=== PATIENT | female | born 1945 | race Caucasian/White ===

== ENCOUNTER 2022-03-02 10:08 | Outpatient (NON) | payer OTHER, SELFPAY ==
[2022-03-02 18:59] LABS: IFOB Positive Control Positive; Immunochemical Fecal Occult Bl Negative (N)
== END 2022-03-02 10:09 | disposition home or self-care (01) ==
LOC: ANHGOSHLAB 10:11
PROVIDERS: PCP Family Medicine; Visit Provider Family Medicine
DX: Z12.11 Encounter for screening for malignant neoplasm of colon (principal)
CPT/HCPCS: 82274

== ENCOUNTER 2023-03-02 08:03 | Outpatient (CLI) | payer OTHER, SELFPAY ==
[2023-03-02 17:12] LABS: Alanine Aminotransferase 17 U/L (6-35); Albumin Level 3.9 g/dL (3.5-5.1); Alkaline Phosphatase 62 U/L (38-126); Anion Gap 2 mmol/L (8-16); Aspartate Amino Transferase 28 U/L (14-36); Bilirubin,Total 0.8 mg/dL (0.2-1.3); Blood Urea Nitrogen 17 mg/dL (7-17); Calcium 8.9 mg/dL (8.4-10.2); Carbon Dioxide 29 mmol/L (22-30); Chloride 107 mmol/L (98-107); Cholesterol 191 mg/dL (0-200); Estimated Glomerular Filt Rate > 60; Glucose 89 mg/dL (65-110); HDL Direct 60 mg/dL; Potassium 4.3 mmol/L (3.4-5.0); Sodium 138 mmol/L (137-145); Triglycerides 56 mg/dL (<150)
[2023-03-02 17:22] LABS: Basophils Absolute Auto 0.1 K/mm3 (0.0-0.1); Basophils Percent Auto 1.1 % (0.2-1.2); Eosinophils Absolute Auto 0.1 K/mm3 (0-0.3); Eosinophils Percent Auto 1.1 % (0-4.4); Hemoglobin 12.6 g/dL (12.0-15.0); Immature Granulocyte Absolute 0.01 K/mm3 (0.00-0.031); Immature Granulocyte Percent A 0.2 % (0-0.5); Lymphocytes Absolute Auto 1.64 K/mm3 (0.9-3.2); Lymphocytes Percent Auto 26.7 % (18.3-44.2); Mean Corpuscular HGB Conc 31.5 g/dl (32-36); Mean Corpuscular Hemoglobin 26.6 pg (26-34); Mean Corpuscular Volume 84.6 fl (80-100); Mean Platelet Volume 12.2 fl (7.4-10.4); Monocytes Absolute Auto 0.6 K/mm3 (0.1-0.6); Monocytes Percent Auto 9.3 % (2.6-8.5); Neutrophils Absolute Auto 3.8 K/mm3 (1.3-6.7); Neutrophils Percent Auto 61.6 % (45.5-73.1); Platelet Count Result 229 k/mm3 (150-375); Red Blood Count 4.73 M/mm3 (4.2-5.4); Red Cell Distribution Width 15.4 % (11.5-14.5); White Blood Count 6.1 K/mm3 (4.5-10.0)
[2023-03-02 17:23] LABS: LDL Cholesterol Direct 100 mg/dL
[2023-03-02 17:35] LABS: Vitamin D 25 Hydroxy 37.7 ng/mL
[2023-03-02 18:10] LABS: Hepatitis C Virus Antibody Negative (Negative)
== END 2023-03-02 08:04 | disposition home or self-care (01) ==
LOC: ANHGOSHLAB 08:06
PROVIDERS: PCP Family Medicine; Visit Provider Family Medicine
DX: Z00.00 Encounter for general adult medical examination without abnormal findings (principal); Z11.59 Encounter for screening for other viral diseases; Z78.0 Asymptomatic menopausal state; M85.80 Other specified disorders of bone density and structure, unspecified site
CPT/HCPCS: 36415; 80053; 80061; 82306; 85025; 86803

== ENCOUNTER 2024-05-06 08:37 | Outpatient (CLI) | payer OTHER, SELFPAY ==
[2024-05-06 14:17] LABS: Basophils Absolute Auto 0.1 K/mm3 (0.0-0.1); Basophils Percent Auto 1.3 % (0.2-1.2); Eosinophils Absolute Auto 0.1 K/mm3 (0-0.3); Eosinophils Percent Auto 1.9 % (0-4.4); Hematocrit 41.5 % (37.0-47.0); Hemoglobin 13.3 g/dL (12.0-15.0); Immature Granulocyte Absolute 0.01 K/mm3 (0.00-0.031); Immature Granulocyte Percent A 0.2 % (0-0.5); Lymphocytes Absolute Auto 1.89 K/mm3 (0.9-3.2); Lymphocytes Percent Auto 35.5 % (18.3-44.2); Mean Corpuscular Volume 84.2 fl (80-100); Mean Platelet Volume 11.9 fl (7.4-10.4); Monocytes Absolute Auto 0.5 K/mm3 (0.1-0.6); Monocytes Percent Auto 9.2 % (2.6-8.5); Neutrophils Absolute Auto 2.8 K/mm3 (1.3-6.7); Neutrophils Percent Auto 51.9 % (45.5-73.1); Platelet Count Result 255 k/mm3 (150-375); Red Blood Count 4.93 M/mm3 (4.2-5.4); Red Cell Distribution Width 15.9 % (11.5-14.5); White Blood Count 5.3 K/mm3 (4.5-10.0)
[2024-05-06 14:59] LABS: Vitamin D 25 Hydroxy 35.2 ng/mL
[2024-05-06 15:21] LABS: Alanine Aminotransferase 14 U/L (6-35); Albumin Level 4.1 g/dL (3.5-5.1); Alkaline Phosphatase 67 U/L (38-126); Anion Gap 7 mmol/L (4-12); Aspartate Amino Transferase 56 U/L (14-36); Bilirubin,Total 0.6 mg/dL (0.2-1.3); Blood Urea Nitrogen 19 mg/dL (7-17); Calcium 9.3 mg/dL (8.4-10.2); Carbon Dioxide 30 mmol/L (22-30); Chloride 105 mmol/L (98-107); Estimated Glomerular Filt Rate > 60; Glucose 80 mg/dL (65-110); Potassium 4.5 mmol/L (3.4-5.0); Sodium 142 mmol/L (137-145)
== END 2024-05-06 08:38 | disposition home or self-care (01) ==
PROVIDERS: PCP Family Medicine; Visit Provider Student in an Organized Health Care Education/Training Program
DX: M85.80 Other specified disorders of bone density and structure, unspecified site (principal); Z85.3 Personal history of malignant neoplasm of breast; E55.9 Vitamin D deficiency, unspecified; Z13.220 Encounter for screening for lipoid disorders
CPT/HCPCS: 36415; 80053; 82306; 85025

== ENCOUNTER 2024-06-27 10:16 | Outpatient (CLI) | payer OTHER, SELFPAY ==
[2024-06-27 13:17] LABS: Alanine Aminotransferase 14 U/L (6-35); Albumin Level 4.2 g/dL (3.5-5.1); Alkaline Phosphatase 73 U/L (38-126); Anion Gap 5 mmol/L (4-12); Aspartate Amino Transferase 46 U/L (14-36); Blood Urea Nitrogen 16 mg/dL (7-17); Calcium 9.1 mg/dL (8.4-10.2); Carbon Dioxide 29 mmol/L (22-30); Chloride 106 mmol/L (98-107); Estimated Glomerular Filt Rate > 60; Glucose 84 mg/dL (65-110); Potassium 4.1 mmol/L (3.4-5.0); Sodium 140 mmol/L (137-145)
== END 2024-06-27 10:17 | disposition home or self-care (01) ==
LOC: ANHGOSHLAB 10:17
PROVIDERS: PCP Family Medicine; Visit Provider Family Medicine
DX: R79.89 Other specified abnormal findings of blood chemistry (principal)
CPT/HCPCS: 36415; 80053

== ENCOUNTER 2025-01-20 08:28 | Outpatient (CLI) | payer OTHER, SELFPAY ==
--- OUTSIDE RECORDS SUMMARY | 2025-01-20 08:35 | XMS_ITS | Referral Summary ---
Author Organization [facility] Address [address] [place] [address] Care Team Providers Care Hatch Supervisor Name Role Phone Alondra Abdul MD Primary Care Provider + Allergies No known active allergies Medications estradiol (ESTRACE) 0.01 % (0.1 mg/gram) vaginal cream mehnaz (1G) by Topical route 2 times every week 0 0 5 Active zolpidem (AMBIEN) 5 mg tablet take 2 tablet by oral route every day at bedtime 0 2 Active multivitamin-mi f-ykaq-YJ-vit K (MULTI FOR HER) 18 mg iron-600 mcg-40 mcg capsule 0 2 Active Additional Information Patient not taking.Reported on 01/02/2019 calcium (CALCIO HAMLET) 500 mg tablet 500 mg. 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 Malignant neoplasm of breast 06/14/2012 Overview (10/13/2016): Breast cancer Dermatochalasis 01/16/2012 Social History Tobacco Use Types Packs/Day Years Used Date Smoking Tobacco: Former Smokeless Tobacco: Never Comments Unknown Sex and Gender Information Value Date Recorded Sex Assigned at Not on file Legal Sex Female 6:43 PM 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 Gender Identity Not on file Sexual Orientation Not on file Last Filed Vital Signs Vital Sign Reading Time Taken Comments Blood Pressure 114/60 07/15/2014 12:49 PM 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 Pulse - - Temperature - - Respiratory Rate - - Oxygen Saturation - - Inhaled Oxygen Concentration - - Weight 58.5 kg (129 lb) 07/15/2014 12:49 PM 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 Height 162.6 cm (5' 4) 07/15/2014 12:49 PM 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 Body Mass Index 22.14 07/15/2014 12:49 PM 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 Plan of Treatment Not on file Insurance [employer] [facility] Care Teams Hatch Supervisor Relationship Specialty Start Date End Date Alondra Abdul MD PCP - General 09/25/17
--- OUTSIDE RECORDS SUMMARY | 2025-01-20 08:35 | XMS_ITS | Clinical Summary ---
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 Gender Identity Not on file Sexual Orientation Not on file Plan of Treatment Health Maintenance Due Date Last Done Comments DEXA Bone Density 1945 Hepatitis C Virus (HCV) Screening 1945 TdaP Immunization 1945 Pneumococcal Immunization (50+ years) (1 of 1 - PCV) 1996 Zoster Immunization (3 of 3) 04/24/2018 02/27/2018, 11/28/2017 Respiratory Syncytial Virus (RSV) Immunization (Adult) (1 - 1-dose 75+ series) 2021 Influenza Immunization (#1) 2024 09/0 11/2019, 05/02/2019, 04/13/2017, Additional history exists SARS-COV-2 Immunization ( season) 2024 08/12/2020 Hepatitis B Immunization Aged Out No longer eligible based on patient's age to complete this topic Meningococcal Immunization (ACWY) Aged Out No longer eligible based on patient's age to complete this topic Rotavirus Immunization Aged Out No lo nger eligible based on patient's age to complete this topic
--- OUTSIDE RECORDS SUMMARY | 2025-01-20 08:35 | XMS_ITS | Clinical Summary ---
Author Organization [facility] Address [address] [place] [address] Care Team Providers Care Crane Ladle Person Name Role Phone Alondra Abdul MD Primary Care Provider + Allergies No known active allergies Medications estradiol (ESTRACE) 0.01 % (0.1 mg/gram) vaginal cream mehnaz (1G) by Topical route 2 times every week 0 0 5 Active zolpidem (AMBIEN) 5 mg tablet take 2 tablet by oral route every day at bedtime 0 2 Active multivitamin-mi q-ldxu-JH-vit K (MULTI FOR HER) 18 mg iron-600 mcg-40 mcg capsule 0 2 Active Additional Information Patient not taking.Reported on 01/02/2019 calcium (CALCIO HAMLET) 500 mg tablet 500 mg. 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 Malignant neoplasm of breast 06/14/2012 Overview (10/13/2016): Breast cancer Dermatochalasis 01/16/2012 Surgical History Surgery Date Site/Laterality Comments EYE SURGERY Medical History Medical History Date Comments Macular degeneration Family History Medical History Relation Name Comments Breast cancer Maternal Grandmother Cancer , breast; Heart disease Other Family history of Heart disease; Relation Name Status Comments Maternal Grandmother Other Social History Tobacco Use Types Packs/Day Years Used Date Smoking Tobacco: Former Smokeless Tobacco: Never Comments Unknown Sex and Gender Information Value Date Recorded Sex Assigned at Not on file Legal Sex Female 6:43 PM RESEARCH ANTHROPOLOGIST Gender Identity Not on file Sexual Orientation Not on file Obstetrics History Last Filed Vital Signs Vital Sign Reading Time Taken Comments Blood Pressure 114/60 07/15/2014 12:49 PM RESEARCH ANTHROPOLOGIST Pulse - - Temperature - - Respiratory Rate - - Oxygen Saturation - - Inhaled Oxygen Concentration - - Weight 58.5 kg (129 lb) 07/15/2014 12:49 PM RESEARCH ANTHROPOLOGIST Height 162.6 cm (5' 4) 07/15/2014 12:49 PM RESEARCH ANTHROPOLOGIST Body Mass Index 22.14 07/15/2014 12:49 PM RESEARCH ANTHROPOLOGIST Plan of Treatment Not on file Insurance Care Teams Crane Ladle Person Relationship Specialty Start Date End Date Alondra Abdul MD PCP - General 09/25/17
--- OUTSIDE RECORDS SUMMARY | 2025-01-20 08:35 | XMS_ITS | Clinical Summary ---
Author Organization [facility] Address [address] [place] [address] Phone Care Team Providers Care Booster Assembler Name Role Phone Agusto Abdul MD Primary Care Provider +1- [phone] Allergies Active Allergy Reactions Criticality Noted Date Comments Cold Tablet Anxiety,Other (See Comments) Low 07/28/2015 Inability to sleep Medications CALCIUM PO Take by mouth. Active EUCRISA 2 % Ointment 12/20/2018 Active vit A/C/E ac/ZnOx/cupric oxide (EYE VITAMIN AND MINERALS ORAL) Take by mouth. Active VITAMIN E ORAL Take by mouth. Active Active Problems Patient Care Coordination No te Formatting of this note migh t be different from the original. 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 Malignant neoplasm of female breast Overview (11/02/2009): 1997,R breast,T1cN0,ER-,AR-,CMF x 6 Lumpectomy,LN,RT Encounters Date Type Department Care Team Description 01/07/2025 External Device Data [facility] ABSTRACTION Provider, Abstract 01/02/2025 Results Follow-Up [facility] Oncology and Hematology [facility] [address] [place] [address] Farhana Nixon, BALDEV XR DEXA BONE DENSITY AXIAL 1 OR MORE SITES 12/31/2024 1:48 PM CDT - 12/31/2024 11:59 PM CDT Hospital Encounter [facility] [address] [place] [address] Farhana Nixon FNP Discharge Disposition: Home or Self Care 12/31/2024 12:29 PM CDT - 12/31/2024 11:59 PM CDT Hospital Encounter [facility] [place] [facility] [address] [place] [id number] Carley Osborne MD Discharge Disposition: Home or Self Care 12/10/2024 External Device Data ST[facility] ABSTRACTION Provider, Abstract 12/03/2024 External Device Data [facility] ABSTRACTION Provider, Abstract 12/03/2024 External Device Data [facility] ABSTRACTION Provider, Abstract 11/27/2024 External Device Data [facility] ABSTRACTION Provider, Abstract 11/26/2024 External Device Data [facility] ABSTRACTION Provider, Abstract 10/25/2024 Orders Only [facility] [address] Farhana Nixon, BALDEV 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, estrogen receptor positive (CMS/HCC) (Primary Dx); Osteoporosis, unspecified osteoporosis type, unspecified pathological fracture presence from Last 3 Months Immunizations Immunization Administration Dates Next Due Influenza Seasonal Unspecified Formulation IM Family History Medical History Relation Name Comments Lung Cancer Father Cancer Maternal Uncle unknown Cancer Mother skin Melanoma Sister Breast Cancer Neg Hx Ovarian Cancer Neg Hx Uterine Cancer Neg Hx Relation Name Status Comments Father Maternal Uncle Mother Sister Social History Tobacco Use Types Packs/Day Years Used Date Smoking Tobacco: Former Cigarettes Q uit: 07/10/1992 Smokeless Tobacco: Never Tobacco Cessation:Counseling Given: Not Answered Comments:1992 Alcohol Use Standard Drinks/Week Comments Yes 0 (1 standard drink = 0.6 oz pur e alcohol) rarely Comments No Sex and Gender Information Value Date Recorded Sex Assigned at Not on file 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 Sex 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 Gender Identity Not on file Sexual Orientation Not on file Occupation Industry Job Start Date Job End Date Not on file Not on file Not on file Not on file Not on file Not on file Not on file Not on file Last Filed Vital Signs Vital Sign Reading Time Taken Comments Blood Pressure 116/66 12/12/2023 11:16 AM CDT Pulse 77 12/12/2023 11:16 AM CDT Temperature 36.4 C (97.5 F) 12/12/2023 11:16 AM CDT Respiratory Rate 16 12/12/2023 11:16 AM CDT Oxygen Saturation 98% 12/12/2023 11:16 AM CDT Inhaled Oxygen Concentration - - Weight 60.4 kg (133 lb 4 oz) 12/12/2023 11:16 AM CDT Height 161.3 cm (5' 3.5) 12/12/2023 11:16 AM CD T Body Mass Index 23.23 12/12/2023 11:16 AM CDT Plan of Treatment Health Maintenance Due Date Last Done Comments DTAP/TDAP/TD VACCINES (1 - Tdap) 1964 PNEUMOCOCCAL VACCINE 50+ YEA RS (1 of 1 - PCV) 1996 ZOSTER VACCINE (1 of 2) 1996 RSV VACCINE (60+ or ) (1 - 1-dose 75+ series) 2021 INFLUENZA VACCINE (#1) 2025 03/14/2020, 2014 OSTEOPOROSIS SCREENING 12/31/2029 12/31/2024, 2021 COLORECTAL SCREENING Discontinued 07/05/2021 Colorectal Cancer Screening Discontinued FIT-DNA Q 3 years Discontinued FIT/FOBT Q 1 year Discontinued Flex Sig/CT Colonography Q 5 years Discontinued Procedures Procedure Name Priority Date/Time Associated Diagnosis Comments XR DEXA BONE DENSITY AXIAL 1 OR MORE SITES Routine 12/31/2024 2:17 PM CDT 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, estrogen receptor positive (CMS/HCC) Osteoporosis, unspecified osteoporosis type, unspecified pathological fracture presence MAMMO BREAST US BILAT COMPLETE Routine 12/31/2024 1:33 PM CDT 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 Clinical Osteoporosis may be based on other factors besides DXA calculated BMD. Other factors include and are not limited to fragility fractures, subclinical compression fractures,osteopenia and elevated FRAX Scores. A major osteoporotic fracture is defined as a fracture of the spine, forearm, hip or shoulder. Definitions: Normal: T-score above -1.0 Osteopenia T-score less than -1.0 and above -2.5 Osteoporosis: T-score <= -2.5 DICTATION LOCATION: [address] 12/31/2024 2:20 PM CDT EXAMINATION: BONE DENSITY STUDY (DXA) DATE: 12/31/2024 2:17 PM HISTORY: 79 years Female presenting osteoporosis screening. PROCEDURE: Planar images of either or the lumbar spine, hips, wrists, lateral topogram of the thoracolumbar spine. FINDINGS: Lumbar Spine: (L1-L4) T-score: -0.7 Thoracolumbar spine lateral topogram: Not performed Left Femoral Neck: T-score: -2.2 Left Total Femur: T-score: -2.1 Right Femoral Neck: T-score: -2.4 Right Total Femur: T-score: -2.4 Left 33% Radius: T-Score: -2.6 Right 33% Radius T-score: Not obtained. FRAX FRACTURE RISK ASSESSMENT: 10-Year probability of major osteoporotic fracture: 25 % 10-Year probability of hip fracture: 8.1 % Procedure Note Mateus Chase MD - 12/31/2024 EXAMINATION: BONE DENSITY STUDY (DXA) DATE: 12/31/2024 2:17 PM HISTORY: 79 years Female presenting osteoporosis screening. PROCEDURE: Planar images of either or the lumbar spine, hips, wrists, lateral topogram of the thoracolumbar spine. FINDINGS: Lumbar Spine: (L1-L4) T-score: -0.7 Thoracolumbar spine lateral topogram: Not performed Left Femoral Neck: T-score: -2.2 Left Total Femur: T-score: -2.1 Right Femoral Neck: T-score: -2.4 Right Total Femur: T-score: -2.4 Left 33% Radius: T-Score: -2.6 Right 33% Radius T-score: Not obtained. FRAX FRACTURE RISK ASSESSMENT: 10-Year probability of major osteoporotic fracture: 25 % 10-Year probability of hip fracture: 8.1 % IMPRESSION: Osteoporosis. Clinical Osteoporosis may be based on other factors besides DXA calculated BMD. Other factors include and are not limited to fragility fractures, subclinical compression fractures,osteopenia and elevated FRAX Scores. A major osteoporotic fracture is defined as a fracture of the spine, forearm, hip or shoulder. Definitions: Normal: T-score above -1.0 Osteopenia T-score less than -1.0 and above -2.5 Osteoporosis: T-score <= -2.5 DICTATION LOCATION: Location [address] [facility] us Farhana Nixon AUDIT INTERN DIAGNOSTIC IMAGING OR DERABLES Final Result * MAMMO BREAST US BILAT COMPLETE (12/31/2024 1:33 PM CDT) Anatomical Region Laterality Modality Breast Bilateral Ultrasound 12/31/2024 1:33 PM CDT Impressions 12/31/2024 1:43 PM CDT IMPRESSION: 1. No concerning abnormality. OVERALL FINAL ASSESSMENT: BI-RADS CATEGORY 2: Benign findings. RECOMMENDATIONS: 1. Recommend annual mammography and annual screening breast MRI. DICTATION LOCATION: [facility] Narrative 12/31/2024 1:43 PM CDT COMPLETE ULTRASOUND OF THE BILATERAL BREASTS DATE: 12/31/2024 1:33 PM HISTORY: Studies dating back to January 2016 TECHNIQUE: Complete real-time cat-scale ultrasound imaging of both the right and left breasts was performed and supplemented with color Doppler imaging as needed. Ultrasound imaging was performed of all 4 quadrants and retroareolar regions of both breasts. Axillary ultrasound was also performed. Patient declined mammography today. COMPARISON: February 2021 FINDINGS: Complete bilateral breast ultrasounds performed including all four quadrants and the retroareolar regions. Axillary ultrasound was also performed. No concerning sonographic abnormalities identified in either breast. No pathologically enlarged lymph nodes identified. Incidental note made of simple cysts within the left breast. us Carley Osborne MD MAMMO ORDERABLES Final Result * COLONOSCOPY REPORT (07/05/2021) Domingo Cm MD GI PROCEDURE ORDERABLES F inal Result [facility] from Last 3 Months or Most Recently Relevant to Health Maintenance Insurance [facility] [address] [place] [id number] [employer] CHOICE POS II Advance Directives For more information, please contact: [phone] * Full Code (Latest Code Status on File) Date Activated Date Inactivated Comments 07/28/2015 8:11 AM 07/28/2015 1:34 PM Care Teams Booster Assembler Relationship Specialty Start Date End Date Agusto Abdul MD PCP - General 10/27/08
--- OUTSIDE RECORDS SUMMARY | 2025-01-20 08:35 | XMS_ITS | Clinical Summary ---
Author Organization [facility] Address [address] [place] [address] Care Team Providers Care Collections Assistant Name Role Phone Unavailable Primary Care Provider Unavailabl e Source Comments [facility],non-owned Affiliates and Associated Physician Practices is amultiple site organization consisting of ambulatory clinics and hospital sitesin [place], [place], [place] and [place]. This disclosure is being madepursuant to the Care Everywhere program and may not contain all information available regarding this patient. Last updated 18.[facility] Allergies No known active allergies Immunizations Immunization Administration Dates Next Due INFLUENZA VACCINE, HIGH-DOSE , QUADR. (FLUZONE HIGH-DOSE QUADRIVALENT; 65Y+), 0.7 ML (HD-IIV4) 03/14/2020 Social History Tobacco Use Types Packs/Day Years Used Date Smoking Tobacco: Never Assessed Comments Unknown Sex and Gender Information Value Date Recorded Sex Assigned at Not on file Legal Sex Female 10:37 AM CDT Gender Identity Not on file Sexual Orientation Not on file Plan of Treatment Health Maintenance Due Date Last Done Comments BONE DENSITY TESTING 1945 HEPATITIS C SCREENING 05/15/1964 DTAP/TDAP/TD VACCINES (1 - Tdap) 1965 PNEUMOCOCCAL VACCINE 50+ (1 of 1 - PCV) 1996 ZOSTER VACCINE (1 of 2) 1996 Respiratory Syncytial Virus (RSV) Vaccine Pt: or over 60 yrs (1 - 1-dose 75+ series) 2021 COVID-19 VACCINE (1 - 2023-2 5 season) 2024 DEPRESSION SCREENING 07/10/2024 INFLUENZA VACCINE (#1) 2025 0, 04/27/2015 HEPATITIS B VACCINE Aged Out No longe r eligible based on patient's age to complete this topic HIB VACCINE Aged Out No longer eligi ble based on patient's age to complete this topic HPV VACCINE Aged Out No longer eligi ble based on patient's age to complete this topic MENINGOCOCCAL (Group B) VACCINE SHARED DECISION-MAKING Aged Out No longer eligible based on patient's age to complete this topic MENINGOCOCCAL GROUPS A/C/Y/W VACCINE Aged Out No longer eligible b ased on patient's age to complete this topic Insurance [employer]
--- OUTSIDE RECORDS SUMMARY | 2025-01-20 08:35 | XMS_ITS | Encounter Summary ---
Author Organization [facility] Address [address] [place] [address] Care Team Providers Care Armhole Sewer Name Role Phone Agusto Abdul MD Primary Care Provider +1- [phone] Encounter Details Date Type Department Care Team (Late st Contact Info) Description 01/02/2025 Results Follow-Up [facility] Oncology and Hematology [facility] [id number] [place] [address] Farhana Nixon, [facility] [address] [place] [address] XR DEXA BONE DENSITY AXIAL 1 OR MORE SITES Social History Tobacco Use Types Packs/Day Years Used Date Smoking Tobacco: Former Cigarettes Q uit: 07/10/1992 Smokeless Tobacco: Never Comments:1992 Alcohol Use Standard Drinks/Week Comments Yes 0 (1 standard drink = 0.6 oz pur e alcohol) rarely Comments No Sex and Gender Information Value Date Recorded Sex Assigned at Not on file Legal Sex Female 3:53 AM 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
== END 2025-01-20 08:29 | disposition home or self-care (01) ==
LOC: ANHGOSHLAB 08:28
PROVIDERS: PCP Family Medicine; Visit Provider Family Medicine
DX: Z78.0 Asymptomatic menopausal state (principal)
CPT/HCPCS: 36415; 82306

== ENCOUNTER 2025-05-14 08:08 | Outpatient (CLI) | payer OTHER, SELFPAY ==
--- OUTSIDE RECORDS SUMMARY | 2025-05-14 08:15 | XMS_ITS | Clinical Summary ---
Author Organization 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 Gender Identity Not on file Sexual Orientation Not on file Plan of Treatment Health Maintenance Due Date Last Done Comments Hepatitis C Virus (HCV) Screening 1945 TdaP Immunization 1945 Pneumococcal Immunization (50+ years) (1 of 1 - PCV) 1996 Zoster Immunization (3 of 3) 04/24/2018 02/27/2018, 11/28/2017 Respiratory Syncytial Virus (RSV) Immunization (Adult) (1 - 1-dose 75+ series) 2021 Influenza Immunization (#1) 2025 09/0 11/2019, 05/02/2019, 04/13/2017, Additional history exists SARS-COV-2 Immunization ( - season) 2025 08/12/2020 Hepatitis B Immunization Aged Out No longer eligible based on patient's age to complete this topic Human Papillomavirus (HPV) Immunization Aged Out No longer eligible based on patient's age to complete this topic Meningococcal Immunization (ACWY) Aged Out No longer eligible based on patient's age to complete this topic Rotavirus Immunization Aged Out No lo nger eligible based on patient's age to complete this topic
--- OUTSIDE RECORDS SUMMARY | 2025-05-14 08:15 | XMS_ITS | Encounter Summary ---
Author Organization [facility] Address [address] [place] [address] Care Team Providers Care Survey Interviewer Name Role Phone Agusto Abdul MD Primary Care Provider +1- [phone] Encounter Details Date Type Department Care Team (Late st Contact Info) Description 03/20/2025 Results Follow-Up [facility] Oncology and Hematology [facility] [id number] [place] [address] Farhana Nixon, [facility] [address] [place] [address] MAMMO BREAST US BILAT COMPLETE Social History Tobacco Use Types Packs/Day Years Used Date Smoking Tobacco: Former Cigarettes Q uit: 07/10/1992 Smokeless Tobacco: Never Comments:1992 Alcohol Use Standard Drinks/Week Comments Yes 0 (1 standard drink = 0.6 oz pur e alcohol) rarely Comments No Sex and Gender Information Value Date Recorded Sex Assigned at Not on file Legal Sex Female 3:53 AM DESIGN INTERN Gender Identity Not on file Sexual Orientation [...] on filedocumented in this encounter Care Teams Survey Interviewer Relationship Specialty Start Date End Date Agusto Abdul MD PCP - General 10/27/08 documented as of this encounter
--- OUTSIDE RECORDS SUMMARY | 2025-05-14 08:15 | XMS_ITS | Clinical Summary ---
Author Organization [facility] Address [address] [place] [address] Care Team Providers Care Sandwich And Drink Cart Operator Name Role Phone Alondra Abdul MD Primary Care Provider + Allergies No known active allergies Medications estradiol (ESTRACE) 0.01 % (0.1 mg/gram) vaginal cream mehnaz (1G) by Topical route 2 times every week 0 0 5 Active zolpidem (AMBIEN) 5 mg tablet take 2 tablet by oral route every day at bedtime 0 2 Active multivitamin-mi a-anii-MM-vit K (MULTI FOR HER) 18 mg iron-600 mcg-40 mcg capsule 0 2 Active Additional Information Patient not taking.Reported on 01/02/2019 calcium (CALCIO HAMLET) 500 mg tablet 500 mg. 0 2 Active omega 0-pcp-ffx-fish oil (FISH OIL) 100-160-1,000 mg capsule 0 2 Active Additional Information Patient not taking.Reported on 01/02/2019 aspirin (ASPIR-81) 81 mg tablet take 1 tablet by oral route every day 0 0 3 Active Additional Information Patient not taking.Reported on 01/02/2019 vit C,B-Vw-zcuvu-jay tein-zeaxan 042-201-84-1 pt-hfky-ql-mg capsule Take by mouth Active melatonin 10 [...] on file Legal Sex Female 6:43 PM SUPERVISOR [employer] Gender Identity Not on file Sexual Orientation Not on file Last Filed Vital Signs Vital Sign Reading Time Taken Comments Blood Pressure 114/60 07/15/2014 12:49 PM SUPERVIS[employer] Pulse - - Temperature - - Respiratory Rate - - Oxygen Saturation - - Inhaled Oxygen Concentration - - Weight 58.5 kg (129 lb) 07/15/2014 12:49 PM [employer]PERVISOR [employer] Height 162.6 cm (5' 4) 07/15/2014 12:49 PM [employer]PERVIS[employer] Body Mass Index 22.14 07/15/2014 12:49 PM SUPERVISOR [employer] Plan of Treatment Not on file Insurance [employer] [facility] Care Teams Sandwich And Drink Cart Operator Relationship Specialty Start Date End Date Alondra Abdul MD PCP - General 09/25/17
--- OUTSIDE RECORDS SUMMARY | 2025-05-14 08:15 | XMS_ITS | Clinical Summary ---
Author Organization [facility] Address [address] 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 This disclosure is being madepursuant to the Care Everywhere program and may not contain all information available regarding this patient. Last updated 18.[facility] Allergies No known active allergies Immunizations Immunization [...] yrs (1 - 1-dose 75+ series) 2021 DEPRESSION SCREENING 07/10/2024 COVID-19 VACCINE (1 - 2023-2 5 season) 2025 INFLUENZA VACCINE (#1) 2025 0, 04/27/2015 HEPATITIS [...] patient's age to complete this topic Insurance [employer]
--- OUTSIDE RECORDS SUMMARY | 2025-05-14 08:16 | XMS_ITS ---
Author Organization Unknown ENCOUNTERS Encounter Performer Location Date Diagnosis Diagnosis Status Outpatient [facility] [address] [place] [address] [id number] Outpatient [facility] [address] [place] [address] [id number] [facility] Outpatient [facility] [address] [place] [address] [id number] [facility] Outpatient [facility] [address] [place] [address] [id number] [facility] Outpatient [facility] [address] [place] [address] [id number] [facility] Outpatient [facility] [address] [place] [address] [id number] FRANNY *Note: Encounters from your own facility or health system may be excluded. Allergies, Adverse Reactions, Alerts Allergen Type Severity Identification Date Medications Name Date Quantity Days Supplied GPI Number
--- OUTSIDE RECORDS SUMMARY | 2025-05-14 08:16 | XMS_ITS | Clinical Summary ---
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 Malignant neoplasm of female breast Overview (11/02/2009): 1997,R breast,T1cN0,ER-,MT-,CMF x 6 Lumpectomy,LN,RT Encounters Date Type Department Care Team Description 04/22/2025 External Device Data [facility] Provider, Abstract 04/15/2025 External Device Data [facility] Provider, Abstract 03/25/2025 External Device Data [facility] Provider, Abstract 03/20/2025 Results Follow-Up [facility] Oncology and Hematology [facility] [address] [place] [address] Farhana Nixon, BALDEV MAMMO BREAST US BILAT COMPLETE 02/26/2025 External Device Data [facility] Provider, Abstract 02/11/2025 External Device Data [facility] Provider, Abstract from Last 3 Months Immunizations Immunization Administration [...] on file 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 Gender Identity Not on file Sexual Orientation [...] unspecified osteoporosis type, unspecified pathological fracture presence COLONOSCOPY REPORT Routine 07/05/2021 from Last 3 [...] Osteoporosis: T-score <= -2.5 DICTATION LOCATION: Location [address] [place] [address] 12/31/2024 2:20 PM CDT EXAMINATION: BONE DENSITY [...] -2.5 Osteoporosis: T-score <= -2.5 DICTATION LOCATION: [address] Farhana DE PAZ DIAGNOSTIC IMAGING OR DERABLES Final Result * COLONOSCOPY REPORT (07/05/2021) Domingo Cm MD GI PROCEDURE ORDERABLES F inal Result [facility] from Last 3 Months or Most Recently Relevant to Health Maintenance Insurance [employer] CHOICE POS II Advance Directives For more information, please contact: [phone] * Full Code (Latest Code Status on File) Date Activated Date Inactivated Comments 07/28/2015 8:11 AM 07/28/2015 1:34 PM Care Teams Collections Associate Relationship Specialty Start Date End Date Agusto Abdul MD PCP - General 10/27/08
[2025-05-14 13:56] LABS: Alanine Aminotransferase 13 U/L (6-35); Albumin Level 4.1 g/dL (3.5-5.1); Alkaline Phosphatase 66 U/L (38-126); Anion Gap 7 mmol/L (4-12); Aspartate Amino Transferase 34 U/L (14-36); Bilirubin,Total 0.8 mg/dL (0.2-1.3); Blood Urea Nitrogen 18 mg/dL (7-17); Calcium 9.3 mg/dL (8.4-10.2); Carbon Dioxide 29 mmol/L (22-30); Chloride 105 mmol/L (98-107); Estimated Glomerular Filt Rate > 60; Glucose 74 mg/dL (65-110); Potassium 4.4 mmol/L (3.4-5.0); Sodium 141 mmol/L (137-145); Total Protein 7.0 g/dL (6.3-8.2)
[2025-05-14 13:58] LABS: Hematocrit 39.2 % (37.0-47.0); Hemoglobin 12.4 g/dL (12.0-15.0); Immature Granulocyte Percent A 0.2 % (0-0.5); Lymphocytes Absolute Auto 1.67 K/mm3 (0.9-3.2); Mean Corpuscular HGB Conc 31.6 g/dl (32-36); Mean Corpuscular Hemoglobin 26.3 pg (26-34); Mean Corpuscular Volume 83.2 fl (80-100); Nucleated Red Blood Cells Absolute Auto 0.000 K/mm3 (0.0-0.012); Nucleated Red Blood Cells Perc 0.0 % (0.0-0.2); Platelet Count Result 246 k/mm3 (150-375); Red Blood Count 4.71 M/mm3 (4.2-5.4); White Blood Count 5.3 K/mm3 (4.5-10.0)
[2025-05-15 13:35] LABS: Cholesterol 209 mg/dL (0-200); HDL Direct 67 mg/dL; Triglycerides 59 mg/dL (<150)
== END 2025-05-14 08:09 | disposition home or self-care (01) ==
LOC: ANHGOSHLAB 08:09
PROVIDERS: PCP Family Medicine; Visit Provider Family Medicine
DX: Z00.00 Encounter for general adult medical examination without abnormal findings (principal); Z78.0 Asymptomatic menopausal state; E55.9 Vitamin D deficiency, unspecified; Z13.220 Encounter for screening for lipoid disorders
CPT/HCPCS: 36415; 80053; 80061; 82306; 85025